=== PATIENT | male | born 1980 | race Caucasian/White ===

== ENCOUNTER 2020-05-27 21:35 | Emergency (ER) | payer SELFPAY ==
[~2020-05-27 21:35] MED LIST: VALTREX1000 MG PO
[2020-05-27 22:53] LABS: HEMOGLOBIN 13.9 gm/dl (14.0-17.5); RED BLOOD COUNT 4.5 M/UL (4.20-5.50); WHITE BLOOD COUNT 13.3 K/UL (4.5-11.0)
[2020-05-27 23:14] LABS: BUN/CREATININE RATIO 15 (0-10)
[2020-05-28] MEDS ORDERED: VIBRAMYCIN100 MG PO (00:59)
[2020-05-28] MEDS ORDERED: NORCO 5-325 TA1 EACH PO (01:01)
[2020-05-28] MEDS ORDERED: IBUPROFEN600 MG PO (01:01)
[2020-05-30 20:11] LABS: CHLAMYDIA TRACHOMATIS, NAA Negative (Negative); NEISSERIA GONORRHOEAE, NAA Negative (Negative)
== END 2020-05-28 01:20 | disposition home or self-care (01) ==
LOC: ER1 21:35
PROVIDERS: Emergency Medicine
DX: N45.3 Epididymo-orchitis (principal); A64 Unspecified sexually transmitted disease; F17.200 Nicotine dependence, unspecified, uncomplicated
CPT/HCPCS: 76870; 80053; 81001; 83690; 85025; 96365; 96375; 99284; J0696; J1885; J2270; J2405; Q9967